=== PATIENT | female | born 1930 | race Caucasian/White ===

== ENCOUNTER 2016-10-29 10:30 | Emergency (ER) | payer MEDICARE ==
[~2016-10-29] VITALS: Ht 160 cm; Wt 83.9 kg
[2016-10-29] MEDS ORDERED: NORVASC5 MG PO (10:31)
[2016-10-29] MEDS ORDERED: LISINOPRIL20 MG PO (10:32)
[2016-10-29] MEDS ORDERED: LIPITOR20 MG PO (10:32)
[2016-10-29] MEDS ORDERED: METFORMIN1000 MG PO (10:32)
[2016-10-29] MEDS ORDERED: LASIX20 MG PO (10:32)
[2016-10-29] MEDS ORDERED: AMARYL1 M1 PO (10:33)
[2016-10-29 11:23] LABS: BASO % 0.3 % (0.0-1.0); HEMATOCRIT 40.4 % (37.0-47.0); HEMOGLOBIN 13.5 g/dl (12.0-16.0); LYMPH # 1.3 10*3/uL (1.3-4.4); MEAN CELL VOLUME 90.6 fl (81.0-99.0); MEAN CORPUSCULAR HGB 30.3 pg (27.0-31.0); MEAN CORPUSCULAR HGB CONC 33.4 g/dl (33.0-37.0); MONO # 0.8 10*3/uL (0.1-1.0); MONO % 6.8 % (3.0-9.0); NEUT # 9.6 10*3/uL (2.3-7.9); NEUT % 81.6 % (47.0-73.0); PLATELET COUNT AUTOMATED 231 10*3/uL (130-400); RED BLOOD COUNT 4.46 10*6/uL (4.10-5.10); RED CELL DISTRI WIDTH 12.1 % (0-14.5); WHITE BLOOD COUNT 11.8 10*3/uL (4.8-10.8)
[2016-10-29 11:40] LABS: ALBUMIN 3.7 gm/dl (3.1-4.5); BILIRUBIN, TOTAL 1.8 mg/dl (0.2-1.0); MAGNESIUM 1.9 mg/dL (1.5-2.1); POTASSIUM 4.1 mmol/L (3.5-5.1); TOTAL PROTEIN 8.3 gm/dL (6.4-8.2)
[2016-10-29 11:43] LABS: TROPONIN I 0.056 ng/ml (<0.045)
[2016-10-29 12:07] LABS: BILIRUBIN NEGATIVE (NEGATIVE); BLOOD 3+ (NEGATIVE); CLARITY SL CLOUDY (CLEAR); COLOR YELLOW (YELLOW); GLUCOSE 2+ (NEGATIVE); KETONE 1+ (NEGATIVE); LEUKO ESTERASE NEGATIVE (NEGATIVE); NITRITE NEGATIVE (NEGATIVE); PROTEIN 3+ (NEGATIVE); SPECIFIC GRAVITY 1.025 (1.005-1.030); UROBILINOGEN 0.2 E.U./dl (0.2-1.0)
[2016-10-29 12:17] LABS: URINE REFLEX COMMENT YES (NO); WBC 31-40 wbc/hpf (0-5); YEAST 2+
[2016-10-29 13:20] LABS: LA>2 REFLEX 2 HR DRAW NOW
== END 2016-10-29 14:35 | disposition short-term general hospital (02) ==
LOC: ED 10:30
PROVIDERS: Family Medicine Adult Medicine
DX: I63.9 Cerebral infarction, unspecified (principal); M62.82 Rhabdomyolysis; Z90.89 Acquired absence of other organs; Z90.710 Acquired absence of both cervix and uterus; Z95.0 Presence of cardiac pacemaker; Z79.899 Other long term (current) drug therapy

== ENCOUNTER 2018-04-11 11:52 | Inpatient (IN) | payer MEDICARE, MEDICAID ==
[~2018-04-11] VITALS: Ht 160 cm; Wt 77.3 kg
--- NOTE | ~2018-04-11 | EKG ---
[place], [place] ELECTROCARDIOGRAM REPORT NAME: FABY KELLER UNIT #: [id number] ROOM: 523 DOCTOR: EPIPHANY DRAFT REPORT BIRTHDATE: [birth year] [facility] Test Date: 2018-04-11 Test Time: 12:12:31 Pat Name: FABY KELLER Department: Room: 523 Gender: F Director Child Abuse Therapy: EKG.PR : 1930 Requested By: ARDEN BLUNT DNP Order Number: [id number] Reading MD: Alvarado Salinas MD Measurements Intervals [facility] [place] Rate: 70 P: 0 CT: 50 QRS: 232 QRSD: 122 T: 84 QT: 461 QTc: 498 Interpretive Statements Ventricular-paced rhythm, Bi ventricular paced rhythm No further analysis attempted due to paced rhythm Compared to ECG 03/17/2018 04:22:56 No significant changes Electronically Signed On 04-11-2018 14:01:49 PDT by Alvarado Salinas MD CM:EKGRPT:ELECTROCARDIOGRAM REPORT 1212 [id number] ARDEN BLUNT DNP EPIPHANY DRAFT REPORT ARDEN BLUNT DNP
[2018-04-11 11:52] VITALS: BP 164/74
[~2018-04-11 11:52] MED LIST: 'zithromax250 MG PO; ALDACTONE25 M1 PO; AMARYL1 M1 PO; ASPIRIN CHEWABL81 MG PO; BREO ELLIPTA 11 EACH INH; CEFUROXIME250 MG PO; COUMADIN2.5 M1 PO; Coumadin5 MG PO; GLIPIZIDE ER2.5 MG PO; GLIPIZIDE5 MG PO; IMDUR SA30 MG PO; JANUVIA50 MG PO; LANTUS SOL100 UNIT/1 SQ; LASIX20 MG PO; LIPITOR20 MG PO; LISINOPRIL20 MG PO; LOPRESSOR25 MG PO; LOSARTAN POTASS50 M1 PO; MEDI-PATCH WIT1 EACH T; METFORMIN1000 MG PO; NORVASC5 MG PO; PREDNISONE5 MG PO; Synthroid,Lev100 MCG PO; TYLENOL325 M3 PO; VITAMIN D5000 UNI1 PO
[2018-04-11 12:13] LABS: BILIRUBIN NEGATIVE (NEGATIVE); BLOOD TRACE-LYSED (NEGATIVE); CLARITY SL CLOUDY (CLEAR); COLOR YELLOW (YELLOW); GLUCOSE NEGATIVE (NEGATIVE); KETONE NEGATIVE (NEGATIVE); LEUKO ESTERASE 1+ (NEGATIVE); NITRITE NEGATIVE (NEGATIVE); PH 5.5 (5.0-9.0); UROBILINOGEN 0.2 E.U./dl (0.2-1.0)
[2018-04-11] MEDS ORDERED: COUMADIN2.5 M1 PO (12:23)
[2018-04-11] MEDS ORDERED: ASPIRIN81 M1 PO (12:23)
[2018-04-11] MEDS ORDERED: IMDUR SA30 MG PO (12:24)
[2018-04-11] MEDS ORDERED: Glipizide2.5 MG PO (12:24)
[2018-04-11] MEDS ORDERED: COUMADIN5 M2 PO (12:24)
[2018-04-11] MEDS ORDERED: GLIPIZIDE5 MG PO (12:24)
[2018-04-11 12:25] LABS: BACTERIA 4+; EPITHELIAL CELLS 0-2; WBC 21-30 wbc/hpf (0-5); YEAST 1+
[2018-04-11] MEDS ORDERED: JANUVIA50 MG PO (12:25)
[2018-04-11] MEDS ORDERED: LASIX40 MG PO (12:26)
[2018-04-11] MEDS ORDERED: LIDODERM1 EACH T (12:26)
[2018-04-11] MEDS ORDERED: LANTUS SOL100 UNIT/1 SC (12:26)
[2018-04-11] MEDS ORDERED: KLOR-CON SPRINK8 MEQ PO (12:27)
[2018-04-11] MEDS ORDERED: NORVASC5 MG PO (12:27)
[2018-04-11] MEDS ORDERED: PROBIOTIC250 MG PO (12:28)
[2018-04-11] MEDS ORDERED: PREDNISONE5 MG PO (12:28)
[2018-04-11] MEDS ORDERED: Synthroid,Lev100 MCG PO (12:28)
[2018-04-11] MEDS ORDERED: Synthroid,Levo50 MCG PO (12:29)
[2018-04-11] MEDS ORDERED: VITAMIN D35000 UNIT PO (12:30)
[2018-04-11] MEDS ORDERED: TYLENOL325 M2 PO (12:31)
[2018-04-11 13:28] VITALS: BP 160/76
[2018-04-11 14:09] LABS: BASO % 0.3 % (0.0-1.0); EOS # 0.1 10*3/uL (0.0-0.4); EOS % 1.1 % (1.0-4.0); HEMATOCRIT 33.3 % (37.0-47.0); HEMOGLOBIN 10.5 g/dl (12.0-16.0); LYMPH # 0.8 10*3/uL (1.3-4.4); LYMPH % 7.8 % (27.0-41.0); MEAN CELL VOLUME 94.9 fl (81.0-99.0); MEAN CORPUSCULAR HGB 29.9 pg (27.0-31.0); MEAN CORPUSCULAR HGB CONC 31.5 g/dl (33.0-37.0); MEAN PLATELET VOLUME 9.6 fl (9.6-12.3); MONO # 0.8 10*3/uL (0.1-1.0); MONO % 7.9 % (3.0-9.0); NEUT # 8.8 10*3/uL (2.3-7.9); NEUT % 82.1 % (47.0-73.0); PLATELET COUNT AUTOMATED 192 10*3/uL (130-400); RED BLOOD COUNT 3.51 10*6/uL (4.10-5.10); RED CELL DISTRI WIDTH 13.8 % (0-14.5); WHITE BLOOD COUNT 10.7 10*3/uL (4.8-10.8)
[2018-04-11 14:27] LABS: ACT PARTIAL THROMBO TIME 34.1 SECONDS (20.8-31.5); INTERNATIONAL NORM RATIO 2.2 (2.0-3.5)
[2018-04-11 14:30] LABS: ALBUMIN 3.4 gm/dl (3.1-4.5); ALKALINE PHOSPHATASE 73 U/L (45-117); BUN 18 mg/dl (7-24); CHLORIDE 106 mmol/L (98-107); CREATININE 1.63 mg/dL (0.55-1.02); LIPASE 143 U/L (73-393); SGOT/AST 17 IU/L (3-35); SGPT/ALT 23 U/L (12-78); SODIUM 142 mmol/L (136-145); TOTAL PROTEIN 7.3 gm/dL (6.4-8.2)
[2018-04-11 14:31] LABS: TROPONIN I < 0.015 ng/ml (<0.045)
[2018-04-11 14:59] VITALS: BP 146/78
[2018-04-11 20:00] VITALS: BP 150/80
[2018-04-12] VITALS: BP 152/58
[2018-04-12 07:06] LABS: BASO % 0.1 % (0.0-1.0); EOS # 0.1 10*3/uL (0.0-0.4); EOS % 0.6 % (1.0-4.0); HEMATOCRIT 35.4 % (37.0-47.0); LYMPH # 1.7 10*3/uL (1.3-4.4); LYMPH % 11.2 % (27.0-41.0); MEAN CELL VOLUME 95.2 fl (81.0-99.0); MEAN CORPUSCULAR HGB 29.6 pg (27.0-31.0); MEAN CORPUSCULAR HGB CONC 31.1 g/dl (33.0-37.0); MEAN PLATELET VOLUME 10.1 fl (9.6-12.3); MONO # 1.3 10*3/uL (0.1-1.0); MONO % 8.6 % (3.0-9.0); NEUT # 12.2 10*3/uL (2.3-7.9); NEUT % 78.9 % (47.0-73.0); PLATELET COUNT AUTOMATED 168 10*3/uL (130-400); RED BLOOD COUNT 3.72 10*6/uL (4.10-5.10); RED CELL DISTRI WIDTH 13.8 % (0-14.5); WHITE BLOOD COUNT 15.5 10*3/uL (4.8-10.8)
[2018-04-12 07:18] LABS: ALBUMIN 3.5 gm/dl (3.1-4.5); CREATININE 1.53 mg/dL (0.55-1.02); PHOSPHOROUS 3.1 mg/dL (2.5-4.9); POTASSIUM 4.2 mmol/L (3.5-5.1); TOTAL PROTEIN 7.8 gm/dL (6.4-8.2)
[2018-04-12 08:00] VITALS: BP 164/72
[2018-04-12] MEDS ORDERED: Lopressor25 MG PO (09:04)
[2018-04-12 11:31] LABS: INTERNATIONAL NORM RATIO 1.7 (2.0-3.5)
[2018-04-12 12:00] VITALS: BP 103/67
[2018-04-12 16:00] VITALS: BP 139/64
[2018-04-13] VITALS: BP 132/54
[2018-04-13 08:00] VITALS: BP 149/50
[2018-04-13] MEDS ORDERED: Humalog SQ (13:50)
[2018-04-13 16:00] VITALS: BP 149/73
== END 2018-04-13 16:30 | disposition other institution (70) | DRG 638 ==
LOC: ED 11:52 → 5E 14:54 → EDHOLD 14:54 → 5E 15:18
PROVIDERS: Internal Medicine; Nurse Practitioner Family
DX: E11.649 Type 2 diabetes mellitus with hypoglycemia without coma (principal); N30.01 Acute cystitis with hematuria; I50.32 Chronic diastolic (congestive) heart failure; I13.0 Hypertensive heart and chronic kidney disease with heart failure and stage 1 through stage 4 chronic kidney disease, or unspecified chronic kidney disease; K74.60 Unspecified cirrhosis of liver; N18.3 Chronic kidney disease, stage 3 (moderate); L89.152 Pressure ulcer of sacral region, stage 2; J44.9 Chronic obstructive pulmonary disease, unspecified; D64.9 Anemia, unspecified; I48.0 Paroxysmal atrial fibrillation; E11.65 Type 2 diabetes mellitus with hyperglycemia; E11.22 Type 2 diabetes mellitus with diabetic chronic kidney disease; I48.91 Unspecified atrial fibrillation; E66.09 Other obesity due to excess calories; Z68.31 Body mass index [BMI] 31.0-31.9, adult; Z95.810 Presence of automatic (implantable) cardiac defibrillator; Z88.0 Allergy status to penicillin; Z91.040 Latex allergy status; Z79.82 Long term (current) use of aspirin; Z79.899 Other long term (current) drug therapy; Z79.4 Long term (current) use of insulin; Z86.73 Personal history of transient ischemic attack (TIA), and cerebral infarction without residual deficits; Z79.01 Long term (current) use of anticoagulants; Z90.710 Acquired absence of both cervix and uterus

== ENCOUNTER 2018-07-14 17:54 | Inpatient (IN) | payer MEDICARE, MEDICAID ==
[~2018-07-14] VITALS: Ht 152.4 cm; Wt 76.8 kg
[~2018-07-14 17:54] MED LIST changes: +ASPIRIN81 M1 PO; +COUMADIN5 M2 PO; +Glipizide2.5 MG PO; +Humalog SQ; +KLOR-CON SPRINK8 MEQ PO; +LANTUS SOL100 UNIT/1 SC; +LASIX40 MG PO; +LIDODERM1 EACH T; +Lopressor25 MG PO; +PROBIOTIC250 MG PO; +Synthroid,Levo50 MCG PO; +TYLENOL325 M2 PO; +VITAMIN D35000 UNIT PO
[2018-07-14 17:55] VITALS: BP 163/71
[2018-07-14 18:54] LABS: BASO % 0.1 % (0.0-1.0); HEMATOCRIT 35.7 % (37.0-47.0); HEMOGLOBIN 11.4 g/dl (12.0-16.0); LYMPH # 0.6 10*3/uL (1.3-4.4); LYMPH % 4.1 % (27.0-41.0); MEAN CORPUSCULAR HGB CONC 31.9 g/dl (33.0-37.0); MEAN PLATELET VOLUME 9.3 fl (9.6-12.3); MONO % 6.7 % (3.0-9.0); NEUT # 13.7 10*3/uL (2.3-7.9); NEUT % 88.5 % (47.0-73.0); PLATELET COUNT AUTOMATED 254 10*3/uL (130-400); RED BLOOD COUNT 3.68 10*6/uL (4.10-5.10); RED CELL DISTRI WIDTH 13.1 % (0-14.5); WHITE BLOOD COUNT 15.5 10*3/uL (4.8-10.8)
[2018-07-14 19:10] LABS: ALBUMIN 3.6 gm/dl (3.1-4.5); CREATININE 1.83 mg/dL (0.55-1.02); POTASSIUM 3.8 mmol/L (3.5-5.1); TOTAL PROTEIN 7.7 gm/dL (6.4-8.2)
[2018-07-14 19:43] LABS: ACT PARTIAL THROMBO TIME 30.3 SECONDS (20.8-31.5); INTERNATIONAL NORM RATIO 1.9 (2.0-3.5)
[2018-07-14 20:08] LABS: BILIRUBIN NEGATIVE (NEGATIVE); BLOOD 2+ (NEGATIVE); CLARITY CLOUDY (CLEAR); COLOR YELLOW (YELLOW); GLUCOSE NEGATIVE (NEGATIVE); KETONE NEGATIVE (NEGATIVE); LEUKO ESTERASE 2+ (NEGATIVE); NITRITE NEGATIVE (NEGATIVE); PH 5.5 (5.0-9.0); SPECIFIC GRAVITY >= 1.030 (1.005-1.030); UROBILINOGEN 0.2 E.U./dl (0.2-1.0)
[2018-07-14 20:20] LABS: WBC TNTC wbc/hpf (0-5)
[2018-07-14 21:36] VITALS: BP 141/65
[2018-07-14 22:00] VITALS: BP 154/59
[2018-07-14] MEDS ORDERED: GLIPIZIDE2.5 MG PO (23:47)
[2018-07-14] MEDS ORDERED: Ipratropium Brom3 ML INH (23:50)
[2018-07-14] MEDS ORDERED: NOVOLOG100 UNIT/1 SQ ×2 (23:53)
[2018-07-15] VITALS: BP 138/78
[2018-07-15 04:00] VITALS: BP 132/53
[2018-07-15 06:15] LABS: BASO % 0.1 % (0.0-1.0); EOS % 0.1 % (1.0-4.0); HEMATOCRIT 35.7 % (37.0-47.0); HEMOGLOBIN 11.5 g/dl (12.0-16.0); LYMPH # 1.1 10*3/uL (1.3-4.4); LYMPH % 6.4 % (27.0-41.0); MEAN CELL VOLUME 98.1 fl (81.0-99.0); MEAN CORPUSCULAR HGB 31.6 pg (27.0-31.0); MEAN CORPUSCULAR HGB CONC 32.2 g/dl (33.0-37.0); MONO % 5.7 % (3.0-9.0); NEUT # 14.9 10*3/uL (2.3-7.9); NEUT % 87.1 % (47.0-73.0); PLATELET COUNT AUTOMATED 203 10*3/uL (130-400); RED BLOOD COUNT 3.64 10*6/uL (4.10-5.10); RED CELL DISTRI WIDTH 13.2 % (0-14.5); WHITE BLOOD COUNT 17.1 10*3/uL (4.8-10.8)
[2018-07-15 06:44] LABS: ALBUMIN 3.1 gm/dl (3.1-4.5); CREATININE 1.83 mg/dL (0.55-1.02); FREE T4 1.49 ng/dl (0.76-1.46); PHOSPHOROUS 4.5 mg/dL (2.5-4.9); TOTAL PROTEIN 6.9 gm/dL (6.4-8.2)
[2018-07-15 06:49] LABS: THYROID STIM HORMONE (HS) 1.22 uIU/ml (0.358-4.75)
[2018-07-15 07:04] LABS: POTASSIUM 5.1 mmol/L (3.5-5.1)
[2018-07-15 07:18] LABS: VITAMIN D, 25-HYDROXY 42.3 ng/mL (30-100)
[2018-07-15 08:00] VITALS: BP 134/54
[2018-07-15 08:06] LABS: INTERNATIONAL NORM RATIO 2.3 (2.0-3.5)
[2018-07-15 16:00] VITALS: BP 151/64
[2018-07-15 20:00] VITALS: BP 139/58
[2018-07-16] VITALS: BP 151/70
[2018-07-16 07:09] LABS: BASO % 0.2 % (0.0-1.0); EOS % 0.2 % (1.0-4.0); HEMATOCRIT 35.5 % (37.0-47.0); HEMOGLOBIN 11.1 g/dl (12.0-16.0); LYMPH # 1.4 10*3/uL (1.3-4.4); LYMPH % 10.9 % (27.0-41.0); MEAN CELL VOLUME 98.3 fl (81.0-99.0); MEAN CORPUSCULAR HGB 30.7 pg (27.0-31.0); MEAN CORPUSCULAR HGB CONC 31.3 g/dl (33.0-37.0); MEAN PLATELET VOLUME 9.6 fl (9.6-12.3); MONO # 0.9 10*3/uL (0.1-1.0); MONO % 6.8 % (3.0-9.0); NEUT # 10.7 10*3/uL (2.3-7.9); NEUT % 81.4 % (47.0-73.0); PLATELET COUNT AUTOMATED 203 10*3/uL (130-400); RED BLOOD COUNT 3.61 10*6/uL (4.10-5.10); RED CELL DISTRI WIDTH 13.2 % (0-14.5); WHITE BLOOD COUNT 13.2 10*3/uL (4.8-10.8)
[2018-07-16 07:20] LABS: CREATININE 1.66 mg/dL (0.55-1.02)
[2018-07-16 07:24] LABS: POTASSIUM 3.8 mmol/L (3.5-5.1)
[2018-07-16 07:40] LABS: INTERNATIONAL NORM RATIO 2.9 (2.0-3.5)
[2018-07-16 07:46] VITALS: BP 154/60
[2018-07-16] MEDS ORDERED: DOXYCYCLINE100 M3 PO (14:21)
== END 2018-07-16 15:25 | DRG 871 ==
LOC: ED 17:54 → EDHOLD 20:55 → 5E 20:55
PROVIDERS: Internal Medicine; Physician Assistant
DX: A41.9 Sepsis, unspecified organism (principal); N17.0 Acute kidney failure with tubular necrosis; N12 Tubulo-interstitial nephritis, not specified as acute or chronic; I50.32 Chronic diastolic (congestive) heart failure; I13.0 Hypertensive heart and chronic kidney disease with heart failure and stage 1 through stage 4 chronic kidney disease, or unspecified chronic kidney disease; E87.2 Acidosis; N18.3 Chronic kidney disease, stage 3 (moderate); R65.20 Severe sepsis without septic shock; D50.9 Iron deficiency anemia, unspecified; R74.0 Nonspecific elevation of levels of transaminase and lactic acid dehydrogenase [LDH]; R70.0 Elevated erythrocyte sedimentation rate; M54.5 Low back pain; K59.00 Constipation, unspecified; E11.22 Type 2 diabetes mellitus with diabetic chronic kidney disease; R11.14 Bilious vomiting; J44.9 Chronic obstructive pulmonary disease, unspecified; E11.65 Type 2 diabetes mellitus with hyperglycemia; Z66 Do not resuscitate; Z51.5 Encounter for palliative care; K74.60 Unspecified cirrhosis of liver; F03.90 Unspecified dementia, unspecified severity, without behavioral disturbance, psychotic disturbance, mood disturbance, and anxiety; I48.91 Unspecified atrial fibrillation; R79.1 Abnormal coagulation profile; E83.41 Hypermagnesemia; E87.8 Other disorders of electrolyte and fluid balance, not elsewhere classified; Z79.4 Long term (current) use of insulin; Z88.0 Allergy status to penicillin; Z91.040 Latex allergy status; Z95.0 Presence of cardiac pacemaker; Z90.710 Acquired absence of both cervix and uterus; Z87.891 Personal history of nicotine dependence; Z86.73 Personal history of transient ischemic attack (TIA), and cerebral infarction without residual deficits; Z79.82 Long term (current) use of aspirin; Z79.899 Other long term (current) drug therapy

== ENCOUNTER 2019-06-27 19:21 | Inpatient (IN) | payer MEDICARE, MEDICAID ==
[~2019-06-27] VITALS: Ht 157.4 cm; Wt 69.1 kg
[~2019-06-27 19:21] MED LIST changes: +DOXYCYCLINE100 M3 PO; +FUROSEMIDE20 M1 PO; +FUROSEMIDE40 MG PO; +GLIPIZIDE2.5 MG PO; +GUAIFENESI100 MG/51 PO; +Ipratropium Brom3 ML INH; +LEVEMIR FL100 UNIT/1 SQ; +METHYLPRED-DP4 MG PO; +NOVOLOG100 UNIT/1 SQ; +POTASSIUM CHLO10 MEQ PO; +PREDNISONE10 MG PO; +TAMIFLU30 MG PO
[2019-06-27 19:24] VITALS: BP 130/60
--- NOTE | 2019-06-27 19:47 | NUR ---
NOTIFIED DR HANNA OF ISSUES ESTABLISHING IV ACCESS. MAGAN SILVERIO TO ATTEMPT.
--- NOTE | 2019-06-27 19:56 | NUR ---
PLACED ON BIPAP 12/6, 40%, BACK UP RATE OF [address] HANNA ORDER. RR 31, VT 417, SpO2 99, HR 70. ALARMS SET AND AUDIBLE.
--- NOTE | 2019-06-27 20:15 | NUR ---
TOLERATING BIPAP WELL.
[2019-06-27 20:17] LABS: BASO # 0.1 10*3/uL (0.0-0.1); BASO % 0.6 % (0.0-1.0); EOS # 0.2 10*3/uL (0.0-0.4); EOS % 1.5 % (1.0-4.0); HEMATOCRIT 38.5 % (37.0-47.0); HEMOGLOBIN 11.9 g/dl (12.0-16.0); LYMPH % 13.8 % (27.0-41.0); MEAN CELL VOLUME 100.3 fl (81.0-99.0); MEAN CORPUSCULAR HGB CONC 30.9 g/dl (33.0-37.0); MEAN PLATELET VOLUME 10.1 fl (9.6-12.3); MONO # 1.1 10*3/uL (0.1-1.0); MONO % 7.6 % (3.0-9.0); NEUT % 76.2 % (47.0-73.0); PLATELET COUNT AUTOMATED 208 10*3/uL (130-400); RED BLOOD COUNT 3.84 10*6/uL (4.10-5.10); WHITE BLOOD COUNT 14.4 10*3/uL (4.8-10.8)
[2019-06-27 20:27] LABS: INTERNATIONAL NORM RATIO 1.7 (2.0-3.5)
--- NOTE | 2019-06-27 20:30 | NUR ---
PULLED UP IN BED AND REPOSITIONED FOR COMFORT. CONTINUES TO TOLERATE BIPAP WELL. SIDE RAILS X 2 AND CALL LIGHT WITHIN REACH. FAMILY REMAINS AT THE BEDSIDE.
[2019-06-27 20:35] LABS: ALKALINE PHOSPHATASE 71 U/L (45-117); BUN 25 mg/dl (7-24); CHLORIDE 111 mmol/L (98-107); CREATININE 1.87 mg/dL (0.55-1.02); POTASSIUM 4.1 mmol/L (3.5-5.1); SGOT/AST 21 IU/L (3-35); SGPT/ALT 18 U/L (12-78); SODIUM 142 mmol/L (136-145); TOTAL PROTEIN 8.4 gm/dL (6.4-8.2)
[2019-06-27 20:38] LABS: TROPONIN I < 0.015 ng/ml (<0.045)
--- NOTE | 2019-06-27 20:40 | NUR ---
NOTIFIED DR HANNA OF LACTIC ACID OF 2.8.
--- NOTE | 2019-06-27 21:42 | NUR ---
SPOKE WITH HAFSA, RECEIVING R TO NOTIFY OF ETA TO ROOM. AWAITING RESPIRATORY.
[2019-06-27 21:50] VITALS: BP 121/78
[2019-06-27 22:00] VITALS: BP 148/78
--- NOTE | 2019-06-27 22:00 | NUR ---
The assessment has been completed. Time: 2199 A 89 year old FEMALE admitted to under services of AISSATOU MONZON DO. Pt. arrived via bed from ER. Chief complaint: DANIEL,CHF,RESPIRATORY DISTRESS, ELEVATED LACTIC ACID. HAFSA GUTIERREZ
[2019-06-27] MEDS ORDERED: COUMADIN2.5 M1 PO (22:40)
[2019-06-27] MEDS ORDERED: WARFARIN SOD5 MG PO (22:41)
[2019-06-27] MEDS ORDERED: DIABETIC T100 MG/51 PO (22:42)
[2019-06-27] MEDS ORDERED: DULCOLAX10 M1 R (22:43)
[2019-06-27] MEDS ORDERED: MILK OF MA400 MG/5 M PO (22:43)
[2019-06-27] MEDS ORDERED: READY TO USE E133 ML R (22:44)
--- NOTE | 2019-06-27 22:45 | NUR ---
INFORMED DR MAN THAT PT WAS UP ON THE FLOOR, MED REC WAS COMPLETE AND THAT SHE WAS IN NO ACUTE DISTRESS. STATED HE WOULD PUT ADMISSION ORDERS IN.
[2019-06-27] MEDS ORDERED: MYLANTA MAXIMU355 M1 PO (22:46)
[2019-06-27] MEDS ORDERED: NOVOLOG100 UNIT/1 SQ (22:50)
--- NOTE | 2019-06-27 23:38 | NUR ---
URINE OBTAINED VIA STAIGHT CATH UNDER STERILE TECHNIQUE. PT TOLERATED WELL. VOICES NO CONCERNS AT THIS TIME. UMANG CARE PROVIDED. RESTING IN BED. BED ALARM ON. CALL LIGHT WITHIN REACH.
[2019-06-27 23:45] LABS: BILIRUBIN NEGATIVE (NEGATIVE); BLOOD 1+ (NEGATIVE); CLARITY CLOUDY (CLEAR); COLOR YELLOW (YELLOW); GLUCOSE NEGATIVE (NEGATIVE); KETONE NEGATIVE (NEGATIVE); LEUKO ESTERASE 3+ (NEGATIVE); NITRITE NEGATIVE (NEGATIVE); PH 5.5 (5.0-9.0); UROBILINOGEN 0.2 E.U./dl (0.2-1.0)
[2019-06-27 23:53] LABS: WBC TNTC wbc/hpf (0-5)
--- NOTE | 2019-06-28 00:01 | NUR ---
24 HR chart check completed.
--- NOTE | 2019-06-28 02:30 | NUR ---
Patient resting quietly with no c/o discomfort. Respirations easy and regular. Vital signs stable. No overt distress. OXYGEN 2L VIA NC INTACT. BED ALARM ON. CALL HELIO FERRELL. HAFSA GUTIERREZ
--- NOTE | 2019-06-28 04:21 | NUR ---
Patient sleeping. Respirations relaxed and easy. [place]ails up . [place] on. NO S/S OF DISTRESS NOTED. OXYGEN 2L VIA NC INTACT. CALL LIGHT WITHIN REACH HISSOM,HAFSA
--- NOTE | 2019-06-28 04:42 | NUR ---
PT COMPLAINS OF 6/10 HIP PAIN. MEDICATED PER ORDER. PILLS GIVEN WHOLE IN APPLESAUCE. WILL MONITOR FOR RELIEF. VOICES NO OTHER CONCERNS AT THIS TIME. RESTING IN BED. CALL LIGHT WITHIN REACH.
--- NOTE | 2019-06-28 06:37 | NUR ---
TYLENOL EFFECTIVE. PT SLEEPING. OXYGEN AT 2L VIA NC INTACT. BED ALARM ON. CALL LIGHT WITHIN REACH. RESPS EASY AND NON LABORED. NO S/S OF DISTRESS NOTED.
[2019-06-28 06:45] LABS: BASO # 0.1 10*3/uL (0.0-0.1); BASO % 0.5 % (0.0-1.0); EOS # 0.1 10*3/uL (0.0-0.4); EOS % 0.7 % (1.0-4.0); HEMATOCRIT 36.1 % (37.0-47.0); HEMOGLOBIN 11.8 g/dl (12.0-16.0); LYMPH % 18.4 % (27.0-41.0); MEAN CORPUSCULAR HGB 31.3 pg (27.0-31.0); MEAN CORPUSCULAR HGB CONC 32.7 g/dl (33.0-37.0); MEAN PLATELET VOLUME 11.1 fl (9.6-12.3); MONO % 9.4 % (3.0-9.0); NEUT # 7.6 10*3/uL (2.3-7.9); NEUT % 70.4 % (47.0-73.0); PLATELET COUNT AUTOMATED 194 10*3/uL (130-400); RED BLOOD COUNT 3.77 10*6/uL (4.10-5.10); RED CELL DISTRI WIDTH 12.9 % (0-14.5); WHITE BLOOD COUNT 10.8 10*3/uL (4.8-10.8)
[2019-06-28 07:00] LABS: CREATININE 1.79 mg/dL (0.55-1.02); POTASSIUM 4.5 mmol/L (3.5-5.1)
[2019-06-28 07:02] LABS: MEAN CELL VOLUME 95.8 fl (81.0-99.0)
[2019-06-28 12:00] VITALS: BP 128/69
[2019-06-28 16:00] VITALS: BP 122/61
[2019-06-28 20:00] VITALS: BP 148/76
--- NOTE | 2019-06-28 20:00 | NUR ---
IN TO SEE PATIENT. PATIENT ALERT TO SELF ONLY. PATIENT UNSURE WHERE SHE WAS. REORIENTED PATIENT TO PLACE. PATIENT HAD NO COMPLAINTS AT THIS TIME AND DENIED ANY PAIN. CALL LIGHT WITHIN REACH. WILL MONITOR.
[2019-06-29] VITALS: BP 147/56
--- NOTE | 2019-06-29 04:59 | NUR ---
24 HR chart check completed.
[2019-06-29 06:46] LABS: BASO # 0.1 10*3/uL (0.0-0.1); BASO % 0.5 % (0.0-1.0); EOS # 0.2 10*3/uL (0.0-0.4); EOS % 2.3 % (1.0-4.0); HEMATOCRIT 35.5 % (37.0-47.0); HEMOGLOBIN 11.1 g/dl (12.0-16.0); LYMPH # 1.1 10*3/uL (1.3-4.4); LYMPH % 10.5 % (27.0-41.0); MEAN CELL VOLUME 98.1 fl (81.0-99.0); MEAN CORPUSCULAR HGB 30.7 pg (27.0-31.0); MEAN CORPUSCULAR HGB CONC 31.3 g/dl (33.0-37.0); MEAN PLATELET VOLUME 9.6 fl (9.6-12.3); MONO # 0.8 10*3/uL (0.1-1.0); MONO % 7.7 % (3.0-9.0); NEUT % 78.6 % (47.0-73.0); PLATELET COUNT AUTOMATED 220 10*3/uL (130-400); RED BLOOD COUNT 3.62 10*6/uL (4.10-5.10); RED CELL DISTRI WIDTH 12.5 % (0-14.5); WHITE BLOOD COUNT 10.2 10*3/uL (4.8-10.8)
[2019-06-29 06:47] LABS: ALBUMIN 3.4 gm/dl (3.1-4.5); CREATININE 1.6 mg/dL (0.55-1.02); POTASSIUM 3.9 mmol/L (3.5-5.1); TOTAL PROTEIN 7.5 gm/dL (6.4-8.2)
[2019-06-29 07:26] LABS: INTERNATIONAL NORM RATIO 1.2 (2.0-3.5)
[2019-06-29 12:00] VITALS: BP 155/65
[2019-06-29 16:00] VITALS: BP 160/60
--- NOTE | 2019-06-29 19:00 | NUR ---
RECEIVED REPORT FROM NURSE RYAN. IN TO SEE PATIENT. PATIENTS RESPIRATIONS WERE EASY, NONLABORED. PATIENT DENIED ANY PAIN AND STATED NO COMPLAINTS AT THIS TIME. ASSESSMENT COMPLETED. CALL LIGHT WITHIN REACH. WILL CONTINUE TO MONITOR.
[2019-06-29 20:00] VITALS: BP 137/51
[2019-06-30] VITALS: BP 131/50
--- NOTE | 2019-06-30 02:45 | NUR ---
24 HR chart check completed.
[2019-06-30 06:20] LABS: BASO % 0.5 % (0.0-1.0); EOS # 0.4 10*3/uL (0.0-0.4); EOS % 4.1 % (1.0-4.0); LYMPH # 1.7 10*3/uL (1.3-4.4); MEAN CELL VOLUME 98.9 fl (81.0-99.0); MEAN CORPUSCULAR HGB 31.1 pg (27.0-31.0); MEAN CORPUSCULAR HGB CONC 31.4 g/dl (33.0-37.0); MEAN PLATELET VOLUME 9.6 fl (9.6-12.3); MONO % 11.4 % (3.0-9.0); NEUT # 5.4 10*3/uL (2.3-7.9); NEUT % 63.6 % (47.0-73.0); PLATELET COUNT AUTOMATED 227 10*3/uL (130-400); RED BLOOD COUNT 3.54 10*6/uL (4.10-5.10); RED CELL DISTRI WIDTH 12.3 % (0-14.5); WHITE BLOOD COUNT 8.5 10*3/uL (4.8-10.8)
[2019-06-30 06:48] LABS: ALBUMIN 3.3 gm/dl (3.1-4.5); CREATININE 1.64 mg/dL (0.55-1.02); POTASSIUM 3.5 mmol/L (3.5-5.1); TOTAL PROTEIN 7.3 gm/dL (6.4-8.2)
[2019-06-30 07:06] LABS: INTERNATIONAL NORM RATIO 1.2 (2.0-3.5)
[2019-06-30 08:00] VITALS: BP 153/60
--- NOTE | 2019-06-30 11:10 | NUR ---
NURSE TO NURSE REPORT GIVEN TO [facility] AT [facility].
--- NOTE | 2019-06-30 11:19 | NUR ---
PT'S FAMILY MADE AWARE OF PLAN FOR D/C TODAY BACK TO [facility].
[2019-06-30 12:25] VITALS: BP 153/59
--- NOTE | 2019-06-30 13:13 | NUR ---
Discharge instructions reviewed with patient/family. Patient receptive and verbalizes understanding. Follow-up care arranged. Written instructions given to patient/family. Patient discharged via [facility]. MYKE ALEXANDRA
== END 2019-06-30 13:13 | disposition other institution (70) | DRG 291 ==
LOC: ED 19:21 → EDHOLD 21:11 → 4E 21:22
PROVIDERS: Emergency Medicine; Hospitalist; Internal Medicine; ADMIT Internal Medicine
PROC: 5A09357 Assistance with Respiratory Ventilation, Less than 24 Consecutive Hours, Continuous Positive Airway Pressure (ICD-10-PCS; principal; 2019-06-27)
DX: I13.0 Hypertensive heart and chronic kidney disease with heart failure and stage 1 through stage 4 chronic kidney disease, or unspecified chronic kidney disease (principal); R65.11 Systemic inflammatory response syndrome (SIRS) of non-infectious origin with acute organ dysfunction; I50.33 Acute on chronic diastolic (congestive) heart failure; E87.2 Acidosis; N17.9 Acute kidney failure, unspecified; J44.9 Chronic obstructive pulmonary disease, unspecified; K74.60 Unspecified cirrhosis of liver; I48.91 Unspecified atrial fibrillation; N18.3 Chronic kidney disease, stage 3 (moderate); E11.22 Type 2 diabetes mellitus with diabetic chronic kidney disease; D64.9 Anemia, unspecified; E87.8 Other disorders of electrolyte and fluid balance, not elsewhere classified; E83.41 Hypermagnesemia; Z66 Do not resuscitate; Z51.5 Encounter for palliative care; E66.9 Obesity, unspecified; E11.65 Type 2 diabetes mellitus with hyperglycemia; Z79.4 Long term (current) use of insulin; Z79.01 Long term (current) use of anticoagulants; Z68.30 Body mass index [BMI] 30.0-30.9, adult; Z86.73 Personal history of transient ischemic attack (TIA), and cerebral infarction without residual deficits; Z88.0 Allergy status to penicillin; Z91.040 Latex allergy status; Z87.01 Personal history of pneumonia (recurrent); Z95.810 Presence of automatic (implantable) cardiac defibrillator; Z90.710 Acquired absence of both cervix and uterus; Z87.891 Personal history of nicotine dependence; Z79.899 Other long term (current) drug therapy

== ENCOUNTER 2019-12-17 15:21 | Inpatient (IN) | payer MEDICARE, MEDICAID ==
[~2019-12-17] VITALS: Ht 165.1 cm; Wt 67.2 kg
[2019-12-17 15:21] VITALS: BP 143/89
[~2019-12-17 15:21] MED LIST changes: +DIABETIC T100 MG/51 PO; +DULCOLAX10 M1 R; +MILK OF MA400 MG/5 M PO; +MYLANTA MAXIMU355 M1 PO; +READY TO USE E133 ML R; +WARFARIN SOD5 MG PO
[2019-12-17 16:52] LABS: BASO % 0.3 % (0.0-1.0); EOS # 0.3 10*3/uL (0.0-0.4); EOS % 2.5 % (1.0-4.0); HEMATOCRIT 35.7 % (37.0-47.0); LYMPH # 1.2 10*3/uL (1.3-4.4); LYMPH % 11.8 % (27.0-41.0); MEAN CELL VOLUME 99.4 fl (81.0-99.0); MEAN CORPUSCULAR HGB 30.6 pg (27.0-31.0); MEAN CORPUSCULAR HGB CONC 30.8 g/dl (33.0-37.0); MEAN PLATELET VOLUME 9.5 fl (9.6-12.3); MONO % 9.8 % (3.0-9.0); NEUT # 7.4 10*3/uL (2.3-7.9); NEUT % 75.4 % (47.0-73.0); PLATELET COUNT AUTOMATED 194 10*3/uL (130-400); RED BLOOD COUNT 3.59 10*6/uL (4.10-5.10); RED CELL DISTRI WIDTH 12.9 % (0-14.5); WHITE BLOOD COUNT 9.9 10*3/uL (4.8-10.8)
[2019-12-17 17:09] LABS: ALBUMIN 3.5 gm/dl (3.1-4.5); ALKALINE PHOSPHATASE 66 U/L (45-117); BUN 22 mg/dl (7-24); CHLORIDE 108 mmol/L (98-107); CREATININE 1.82 mg/dL (0.55-1.02); POTASSIUM 4.4 mmol/L (3.5-5.1); SGOT/AST 18 IU/L (3-35); SGPT/ALT 18 U/L (12-78); SODIUM 138 mmol/L (136-145); TOTAL PROTEIN 7.7 gm/dL (6.4-8.2)
[2019-12-17 17:17] LABS: TROPONIN I < 0.015 ng/ml (<0.045)
[2019-12-17 17:30] VITALS: BP 148/83
--- NOTE | 2019-12-17 17:30 | NUR ---
PT WIMPERING. RN ASKED IF SHE WAS IN PAIN. PT DENIES PAIN, DISCOMFORT OR SOB AT THIS TIME. WHEN ASKED WHAT IS WRONG THAT IS CAUSING HER TO WIMPER SHE REPLIED "EVERYTHING" PT REFUSES TO KEEP PULSE OX ON.
--- NOTE | 2019-12-17 18:33 | NUR ---
PT HOLDING HER DENTURES IN HER HAND AT THIS TIME. RN OFFERED A DENTURE CUP AND PT STATES THAT SHE WANTS TO PUT THEM BACK IN HER MOUTH. RN OFFERED ASSISTANCE AND WAS TOLD THAT SHE DID NOT NEED HELP.
--- NOTE | 2019-12-17 18:45 | NUR ---
PT'S DENTURES PLACED IN DENTURE CUP AND PLACED IN BELONGINGS BAG WITH HER CLOTHING AND EYE GLASSES.
[2019-12-17 20:35] VITALS: BP 160/76
--- NOTE | 2019-12-17 20:35 | NUR ---
A 89, admitted to 5E, under the services of LAYNE Marquez DO with a diagnosis of CHF. Chief complaint is SOB 2-3 DAYS PT. FROM [facility], O2 DEP.4L AT [facility].. Patient arrived via stretcher from ER. Monitor applied. Initial assessment completed. Vital signs taken and recorded. LAYNE MARQUEZ DO notified of admission to the . Orders received. See assessment for past medical history, medications and allergies. Patient and/or family oriented to unit. [facility] visitation policy reviewed. Clothing/patient valuable form completed. BRYANT YAP
--- NOTE | 2019-12-17 21:10 | NUR ---
CALLED DR. NINO AND NOTIFIED PT. HERE AND CONDITION. ORDERS WERE PLACED.
[2019-12-17] MEDS ORDERED: BUMETANIDE1 MG PO (21:16)
[2019-12-17] MEDS ORDERED: GABAPENTIN100 M2 PO (21:21)
[2019-12-17] MEDS ORDERED: Ipratropium Brom3 ML INH (21:22)
[2019-12-17] MEDS ORDERED: MIRALAX POWDER17 G1 PO (21:27)
[2019-12-17] MEDS ORDERED: TRAMADOL HCL50 MG PO (21:31)
[2019-12-17] MEDS ORDERED: MILLIPRED5 MG PO (21:32)
[2019-12-17] MEDS ORDERED: NOVOLOG10 ML SC (21:46)
[2019-12-17 21:58] LABS: INTERNATIONAL NORM RATIO 2.7 (2.0-3.5)
--- NOTE | 2019-12-17 23:30 | NUR ---
ASSUMED CARE OF PATIENT. PATIENT ON 15L 100% NONREBREATHER. PATIENT DYSPNIC AT REST. DR. NINO IN ROOM. PATIENT CAN ONLY GET ONE WORD AT A TIME OUT SHE IS SHORT OF BREATH. PATIENT STATES SHE'S IN NO DISCOMFORT JUST HAVING A HARD TIME BREATHING. RIVERA DRAINING YELLOW URINE. CALL LIGHT WITHN REACH, WILL MONITOR
[2019-12-18] VITALS: BP 156/62
--- NOTE | 2019-12-18 01:15 | NUR ---
SPOKE WITH DR. NINO AT THIS TIME. TOLD HIM RESPIRATORY DECREASED PATIENTS OXYGEN TO 6L NASAL CANNULA AND PATIENTS MAINITAING 95% AND UP ON THAT, BUT WAS REQUESTING IF PATIENT COULD HAVE MORPHINE TO SLOW DOWN HER BREATHING AND MOANING. DR. NINO STATED HE WOULD PUT IT IN
--- NOTE | 2019-12-18 01:43 | NUR ---
ONE TIME DOSE OF MORPHINE GIVEN FOR PATIENTS INCREASED RESPIRATIONS AND MOANING. CALL LIGHT WITHIN REACH, WILL MONITOR
--- NOTE | 2019-12-18 02:10 | NUR ---
IV started right arm with #24 protective cath after 0 attempts. Site prepped with Chloroprep. Sterile dressing applied. Patient tolerated procedure well. LUBNA CAICEDO
--- NOTE | 2019-12-18 02:15 | NUR ---
Hep Lock discontinued RH. Site symptomatic PAINFUL. Pressure applied. Sterile dressing applied. LUBNA CAICEDO
--- NOTE | 2019-12-18 02:34 | NUR ---
PATIENT STILL MILDLY DYSPNIC, BUT STATES THE MORPHINE MADE HER FEEL BETTER. CALL LIGHT WITHIN REACH, WILL MONITOR
--- NOTE | 2019-12-18 04:00 | NUR ---
PATIENT APPEARS TO BE SLEEPING, STILL IN MILD DISTRESS. BUT MUCH CALMER AND NO LONGER MOANING. CALL LIGHT WITHIN REACH, WILL MONITOR
[2019-12-18 05:15] LABS: BILIRUBIN NEGATIVE (NEGATIVE); BLOOD 3+ (NEGATIVE); CLARITY CLEAR (CLEAR); COLOR YELLOW (YELLOW); GLUCOSE NEGATIVE (NEGATIVE); KETONE NEGATIVE (NEGATIVE); LEUKO ESTERASE TRACE (NEGATIVE); NITRITE NEGATIVE (NEGATIVE); SPECIFIC GRAVITY 1.025 (1.005-1.030); UROBILINOGEN 0.2 E.U./dl (0.2-1.0)
[2019-12-18 05:30] LABS: RBC 41-50 rbc/hpf (0-2)
[2019-12-18 05:31] LABS: BACTERIA TRACE
--- NOTE | 2019-12-18 06:58 | NUR ---
DR. LEMON NOTIFIED OF CONSULT
--- NOTE | 2019-12-18 07:01 | NUR ---
ANSWERING SERVICE FOR DR. HENDRIX NOTIFIED OF CONSULT AT THIS TIME
--- NOTE | 2019-12-18 07:04 | NUR ---
DR. REA NOTIFIED OF CONSULT
--- NOTE | 2019-12-18 07:43 | NUR ---
24 HR chart check completed.
[2019-12-18 08:00] VITALS: BP 155/51
--- NOTE | 2019-12-18 08:57 | NUR ---
PT IN CHRONIC RESPIRATORY DISTRESS. DRS IN TO SEE. DR SANTIAGO AWARE OF INABILITY TO OBTAIN AM LABS AT THIS POINT.
--- NOTE | 2019-12-18 09:43 | NUR ---
Updates faxed to [facility] on this date. Patient is LTC with [facility] and can return once medically stable.
[2019-12-18 12:00] VITALS: BP 154/62
--- NOTE | 2019-12-18 12:39 | NUR ---
PT IS USP CARE AT [facility] AND CAN RETURN WHEN MEDICALLY STABLE. WILL CONTINUE TO FOLLOW.
--- NOTE | 2019-12-18 13:18 | NUR ---
PHYSICAL THERAPY Abigail received chart reviewed, pt just admitted 12/16 and pt currently with multiple consults to be seen by pulmonary today. Pt on 6L 02 with mild distress had been receiving morphine due to increase repiratory rate/distress. Will follow once pulmonary has seen pt to further address respiratory status and will follow as appropriate. Janae Boogie PT
--- NOTE | 2019-12-18 14:56 | NUR ---
medicated with iv morphine as ordered for resp distress.
--- NOTE | 2019-12-18 15:29 | NUR ---
[facility] NOTIFIED OF P[facility]IVE CARE CONSULT. SHELBY HARVEY, SHOULD BE IN TO SEE PT TODAY. FACE SHEET, ORDER AND H&P TO BE FAXED.
--- NOTE | 2019-12-18 15:53 | NUR ---
REFERRAL FOR PALLIATIVE CARE SENT TO [facility].
[2019-12-18 16:00] VITALS: BP 176/62
[2019-12-18 16:12] LABS: ABG BASE EXCESS 2.9 mmol/L (-2.0-2.0); ARTERIAL BLOOD GAS PH 7.402 (7.35-7.45)
--- NOTE | 2019-12-18 17:13 | NUR ---
DR LEMON NOTIFIED OF [facility], NEW ORDER RECEIVED.
--- NOTE | 2019-12-18 17:21 | NUR ---
CANDICE TELLO NP INTO SEE PT FOR PALLIATIVE CONSULT.
--- NOTE | 2019-12-18 17:48 | NUR ---
MEDICATED WITH IV MORPHINE ORDERED FOR CONTINUED AND WORSENING RESP DISTRESS.
--- NOTE | 2019-12-18 18:38 | NUR ---
18:10 PT PLACED ON BIPAP. MILD RESP INSUFFICIENCY. TOLERATING WELL. PT STATES HER BREATHING FEELS BETTER ON THE BIPAP. BBSs EQUAL AND CLEAR. PT PLACED ON 12/6 AND 40%. SPO2 95% HR 70. RR 17. SYSTEM CHECKED AND FX'ING
--- NOTE | 2019-12-18 19:45 | NUR ---
PATIENT RESTING IN BED. VERY COMFORTABLE ON BIPAP, SLEEPING. NO DISTRESS NOTED. LUNGS WITH OFF AND ON WHEEZING AND RONCHI NOTED T/O. PATIENT PLEASANT AND COOPERATIVE WHEN AWAKE. SHOOK HER HEAD YES WHEN ASKED IF SHE FELT BETTER ON THE BIPAP.
[2019-12-18 20:00] VITALS: BP 148/66
[2019-12-19] VITALS: BP 156/60
--- NOTE | 2019-12-19 00:51 | NUR ---
PATIENT CONTINUES TO REST PEACEFULLY ON BIPAP. NO DISTRESS AT THIS TIME. VITALS WITHIN NORMAL LIMITS. RIVERA PATENT FOR YELLOW URINE. CALL LIGHT WITHIN REACH, WILL MONITOR
--- NOTE | 2019-12-19 01:13 | NUR ---
24 HR chart check completed.
--- NOTE | 2019-12-19 03:52 | NUR ---
PATIENT CONTINUES TO SLEEP ON BIPAP. CALL LIGHT WITHIN REACH, WILL MONITOR
--- NOTE | 2019-12-19 05:20 | NUR ---
ATTEMPTED TO TAKE PATIENT ON BIPAP AT THIS TIME. RESPIRATORY PRESENT. PATIENT PLACED ON 6L AND PULSE OX WAS MONITORED. PATIENT MAIINTAINED 99%, PATIENT WAS SLOWLY DROPPED TO 4L AND MAINTAINED MID 90'S. NOT LONG AFTER REMOVAL OF BIPAP PATIENT BEGAN USING ACCESSORY MUSCLES TO BREATH AND MOANING. PATIENT ALSO STATED THAT SHE WAS IN PAIN. WHEN ASKED IF THE PATIENT WOULD LIKE TO GO BACK ON THE BIPAP SHE STATED SHE WOULD. ATTEMPTED TO ALSO GIVE PATIENT MORPHINE FOR COMFORT AND IF ACCESS WAS LOST. PATIENT PLACED BACK ON BIPAP AND DOING MUCH BETTER.
--- NOTE | 2019-12-19 06:15 | NUR ---
IV started right BREAST with #24 protective cath after 1 attempts. Site prepped with Chloroprep. Sterile dressing applied. Patient tolerated procedure well. LUBNA CAICEDO
--- NOTE | 2019-12-19 07:01 | NUR ---
PATIENT RESTING QUIETLY ON BIPAP. MORPHINE APPEARS EFFECTIVE
[2019-12-19 07:14] LABS: BASO % 0.2 % (0.0-1.0); EOS # 0.1 10*3/uL (0.0-0.4); EOS % 1.4 % (1.0-4.0); HEMATOCRIT 32.3 % (37.0-47.0); LYMPH # 1.3 10*3/uL (1.3-4.4); LYMPH % 13.5 % (27.0-41.0); MEAN CORPUSCULAR HGB 30.6 pg (27.0-31.0); MEAN CORPUSCULAR HGB CONC 31.6 g/dl (33.0-37.0); MEAN PLATELET VOLUME 9.6 fl (9.6-12.3); MONO # 0.8 10*3/uL (0.1-1.0); MONO % 8.9 % (3.0-9.0); NEUT % 75.6 % (47.0-73.0); PLATELET COUNT AUTOMATED 202 10*3/uL (130-400); RED BLOOD COUNT 3.33 10*6/uL (4.10-5.10); RED CELL DISTRI WIDTH 12.2 % (0-14.5); WHITE BLOOD COUNT 9.3 10*3/uL (4.8-10.8)
[2019-12-19 07:21] LABS: ACT PARTIAL THROMBO TIME 43.6 SECONDS (20.0-32.1); INTERNATIONAL NORM RATIO 2.9 (2.0-3.5)
[2019-12-19 07:50] LABS: CREATININE 1.49 mg/dL (0.55-1.02); POTASSIUM 3.7 mmol/L (3.5-5.1)
[2019-12-19 07:58] LABS: VITAMIN D, 25-HYDROXY 67.2 ng/mL (30-100)
[2019-12-19 08:00] VITALS: BP 156/50
--- NOTE | 2019-12-19 08:00 | NUR ---
Patient resting quietly with no c/o discomfort. Respirations easy and regular. Vital signs stable. No overt distress. DON MORRELL
--- NOTE | 2019-12-19 09:00 | NUR ---
Occupational therapy orders received and chart reviewed. Patient is on BiPap and resting comfortably. Per nursing, patient's family is discussing palliative care versus hospice this date. Will defer OT evaluation at this time until futher MD clarification. Thank you. Syeda Pacheco, OTR/L
--- NOTE | 2019-12-19 09:18 | NUR ---
PHYSICAL THERAPY Spoke with nurse, pt currently on BiPAP and resting comfortably, pt's family to come and discuss pallative vs hospice care. Defer therapy at this time due to respiratory status and will follow pending family/MD discussion regarding medical status. Janae Boogie PT
--- NOTE | 2019-12-19 10:00 | NUR ---
FAMILY IN TO VISIT.
[2019-12-19 12:00] VITALS: BP 126/50
--- NOTE | 2019-12-19 12:32 | NUR ---
PT IS [facility] CARE AT [facility] AND WILL RETURN WHEN MEDICALLY STABLE.
--- NOTE | 2019-12-19 13:11 | NUR ---
Patient resting quietly with no c/o discomfort. Respirations easy and regular. Vital signs stable. No overt distress. DON MORRELL
[2019-12-19 16:00] VITALS: BP 100/61
--- NOTE | 2019-12-19 16:00 | NUR ---
Patient resting quietly with no c/o discomfort. Respirations easy and regular. Vital signs stable. No overt distress. DON MORRELL
[2019-12-19 20:00] VITALS: BP 151/59
--- NOTE | 2019-12-19 22:49 | NUR ---
PLACED PATIENT ON BIPAP FOR HS
[2019-12-20] VITALS: BP 138/59
--- NOTE | 2019-12-20 01:01 | NUR ---
24 HR chart check completed.
--- NOTE | 2019-12-20 02:10 | NUR ---
SLEEPING BIPAP IN USE. NO ACUTE DISTRESS NOTED.
--- NOTE | 2019-12-20 03:40 | NUR ---
IV in right chest pulled out catheter intact. sterile dressing applied. IV started left forearm with #22 angiocath after 1 attempts. The IV site was prepped with Chloraprep. Heparin lock attached. Sterile dressing applied. Patient tolerated precedure well. Procedure performed according to [facility] policy & procedure. BRYANT YAP
--- NOTE | 2019-12-20 06:40 | NUR ---
BIPAP OFF AND PATIENT PLACE BACK ON HER O2 4L NC. PATIENT TOLERATED BIPAP ALL NIGHT. PATIENT ALERT AND ATE 1 CONTAINEER OF APPLESAUCE.
[2019-12-20 06:41] LABS: INTERNATIONAL NORM RATIO 3.3 (2.0-3.5)
[2019-12-20 08:00] VITALS: BP 153/73
--- NOTE | 2019-12-20 10:00 | NUR ---
Physical Therapy evaluation completed on fifth floor with full evaluation to follow. Recommend physical therapy per plan of care and SNF/rehab upon discharge/return to nursing facility. Thank you for this referral. Janae Boogie PT
--- NOTE | 2019-12-20 10:15 | NUR ---
Occupational Therapy evaluation completed on four with full evaluation to follow. Recommend occupational therapy per plan of care and return to LTC with follow up therapy upon discharge. Thank you for this referral. Syeda Pacheco OTR/L
--- NOTE | 2019-12-20 11:37 | NUR ---
Clinical updates faxed to [facility] on this date. Patient will need a negative rapid covid before she can return.
[2019-12-20 12:00] VITALS: BP 150/57
--- NOTE | 2019-12-20 13:06 | NUR ---
PT IS NURSING HOME CARE AT [facility] AND WILL RETURN WHEN MEDICALLY STABLE. WILL CONTINUE TO FOLLOW.
[2019-12-20 16:00] VITALS: BP 136/74
--- NOTE | 2019-12-20 19:30 | NUR ---
PATIENT SITTING UP IN CHAIR. VOICED NO COMPLAINTS, NO OVERT DISTRESS NOTED. RESP ARE EASY AND REGULAR, ON 4L NC. CHAIR ALARM IN PLACE. CALL LIGHT WITHIN REACH
[2019-12-20 20:00] VITALS: BP 149/62
--- NOTE | 2019-12-20 23:43 | NUR ---
[place] EFFECTIVE
[2019-12-21] VITALS: BP 168/67
--- NOTE | 2019-12-21 01:00 | NUR ---
PATIENT RESTING QUIETLY, EYES CLSOED. NO DISTRESS NOTED. BIPAP MAINTAINED. CALL LIGTH WITHIN REACH
[2019-12-21 06:57] LABS: INTERNATIONAL NORM RATIO 2.8 (2.0-3.5)
[2019-12-21 08:00] VITALS: BP 153/74
[2019-12-21 08:20] LABS: BASO % 0.4 % (0.0-1.0); EOS # 0.2 10*3/uL (0.0-0.4); EOS % 2.7 % (1.0-4.0); HEMATOCRIT 36.9 % (37.0-47.0); LYMPH # 1.4 10*3/uL (1.3-4.4); LYMPH % 18.3 % (27.0-41.0); MEAN CELL VOLUME 94.9 fl (81.0-99.0); MEAN CORPUSCULAR HGB 30.6 pg (27.0-31.0); MEAN CORPUSCULAR HGB CONC 32.2 g/dl (33.0-37.0); MEAN PLATELET VOLUME 10.6 fl (9.6-12.3); MONO # 0.7 10*3/uL (0.1-1.0); NEUT # 5.3 10*3/uL (2.3-7.9); NEUT % 69.3 % (47.0-73.0); PLATELET COUNT AUTOMATED 221 10*3/uL (130-400); RED BLOOD COUNT 3.89 10*6/uL (4.10-5.10); RED CELL DISTRI WIDTH 11.8 % (0-14.5); WHITE BLOOD COUNT 7.7 10*3/uL (4.8-10.8)
[2019-12-21 08:59] LABS: ALBUMIN 3.6 gm/dl (3.1-4.5); CREATININE 1.27 mg/dL (0.55-1.02); POTASSIUM 3.3 mmol/L (3.5-5.1); TOTAL PROTEIN 7.6 gm/dL (6.4-8.2)
[2019-12-21 12:00] VITALS: BP 133/68
--- NOTE | 2019-12-21 12:30 | NUR ---
DR HENDRIX ROUNDED AND SEEN PT. PT OK FOR D/C TOMORROW TO [place] PER [facility] HENDRIX.
--- NOTE | 2019-12-21 13:32 | NUR ---
DR LEMON ROUNDED AND SEEN PT. OK FOR D/C TO [facility] TOMORROW PER DR LEMON.
[2019-12-21 16:00] VITALS: BP 137/59
--- NOTE | 2019-12-21 17:24 | NUR ---
PT RESTING IN BED WITH EYES CLOSED. RESPS EASY ON 4LNC.NO DISTRESS NOTED. WILL CONTINUE TO MONITOR. CALL LIGHT IN REACH.
--- NOTE | 2019-12-21 19:30 | NUR ---
PATIENT VOICED NO COMPLAINTS. NO DISTRESS NOTED. SITTING UP IN BED WATCHING TV. RESP ARE ERND ON 4L NC. CALL LIGHT WITHIN REACH
[2019-12-21 20:00] VITALS: BP 146/64
--- NOTE | 2019-12-21 22:13 | NUR ---
PLACED PATIENT ON BIPAP FOR HS
[2019-12-22] VITALS: BP 157/74
--- NOTE | 2019-12-22 00:14 | NUR ---
PATIENT HAD VERY LARGE BOWEL MOVEMENT AT THIS TIME. UMANG-CARE PROVIDED.
[2019-12-22 06:45] LABS: BASO % 0.5 % (0.0-1.0); EOS # 0.4 10*3/uL (0.0-0.4); EOS % 5.2 % (1.0-4.0); HEMATOCRIT 39.7 % (37.0-47.0); LYMPH # 1.4 10*3/uL (1.3-4.4); LYMPH % 16.4 % (27.0-41.0); MEAN CORPUSCULAR HGB 30.1 pg (27.0-31.0); MEAN CORPUSCULAR HGB CONC 31.7 g/dl (33.0-37.0); MEAN PLATELET VOLUME 9.2 fl (9.6-12.3); MONO # 0.9 10*3/uL (0.1-1.0); MONO % 10.6 % (3.0-9.0); NEUT # 5.7 10*3/uL (2.3-7.9); NEUT % 66.9 % (47.0-73.0); RED BLOOD COUNT 4.18 10*6/uL (4.10-5.10); RED CELL DISTRI WIDTH 11.8 % (0-14.5); WHITE BLOOD COUNT 8.5 10*3/uL (4.8-10.8)
[2019-12-22 06:46] LABS: PLATELET COUNT AUTOMATED 305 10*3/uL (130-400)
[2019-12-22 06:51] LABS: ALBUMIN 3.5 gm/dl (3.1-4.5); CREATININE 1.4 mg/dL (0.55-1.02); POTASSIUM 3.4 mmol/L (3.5-5.1); TOTAL PROTEIN 8.1 gm/dL (6.4-8.2)
[2019-12-22 08:00] VITALS: BP 173/69
--- NOTE | 2019-12-22 09:37 | NUR ---
08:20 PT TAKEN OFF OF BIPAP AT THIS TIME. PT HAD BEEN ON BIPAP T/O THE NIGHT. PT PLACED ON 4 L NC. RESPS REGULAR AND UNLABORED. TOLERATED BIPAP WELL T/O THE NIGHT. SPO2 100% ON 4 L. BBSs CLEAR.
[2019-12-22] MEDS ORDERED: KLOR-CON M2020 ME1 PO (10:09)
[2019-12-22] MEDS ORDERED: COUMADIN2 M1 PO (10:12)
[2019-12-22] MEDS ORDERED: Humalog SQ (10:12)
[2019-12-22] MEDS ORDERED: Lantus SC (10:12)
--- NOTE | 2019-12-22 10:38 | NUR ---
PT CALLED OUT TO C/O NAUSEA. PT DIAPHORETIC. DRY HEAVING. DENIES CP/PRESSURE. PT IS SOB. PLACED ON 2LNC.SPO2 89%. VITALS OBTAINED. NOTIFIED DR OLIVAREZ, ORDERS RECIEVED.
[2019-12-22 12:00] VITALS: BP 136/57
--- NOTE | 2019-12-22 12:14 | NUR ---
RIVERA D/C PER TERRELL WARREN'S ORDER. WILL CONTINUE TO MONITOR FOR URINE OUTPUT. BRIEF IN PLACE.ONCE PT HAS HAD URINE OUTPUT PT CAN BE DISCHARGED PER TERRELL WARREN'S REQUEST.
--- NOTE | 2019-12-22 15:13 | NUR ---
Discharge instructions reviewed with patient/family. Patient receptive and verbalizes understanding. Follow-up care arranged. Written instructions given to patient/family. IZABELA RODRIGUEZ
--- NOTE | 2019-12-22 15:23 | NUR ---
REPORT GIVEN TO LEEANNA AT [facility].
== END 2019-12-22 15:13 | disposition other institution (70) | DRG 291 ==
LOC: ED 15:21 → EDHOLD 19:28 → 5E 19:28
PROVIDERS: Emergency Medicine; Internal Medicine; Internal Medicine Critical Care Medicine; Registered Nurse; Student in an Organized Health Care Education/Training Program; ADMIT Internal Medicine
PROC: 5A09357 Assistance with Respiratory Ventilation, Less than 24 Consecutive Hours, Continuous Positive Airway Pressure (ICD-10-PCS; principal; 2019-12-18)
PROC: 5A09357 Assistance with Respiratory Ventilation, Less than 24 Consecutive Hours, Continuous Positive Airway Pressure (ICD-10-PCS; 2019-12-20)
PROC: 5A09357 Assistance with Respiratory Ventilation, Less than 24 Consecutive Hours, Continuous Positive Airway Pressure (ICD-10-PCS; 2019-12-21)
PROC: 5A09357 Assistance with Respiratory Ventilation, Less than 24 Consecutive Hours, Continuous Positive Airway Pressure (ICD-10-PCS; 2019-12-22)
DX: I13.0 Hypertensive heart and chronic kidney disease with heart failure and stage 1 through stage 4 chronic kidney disease, or unspecified chronic kidney disease (principal); J96.21 Acute and chronic respiratory failure with hypoxia; N17.0 Acute kidney failure with tubular necrosis; I50.33 Acute on chronic diastolic (congestive) heart failure; D68.59 Other primary thrombophilia; R65.10 Systemic inflammatory response syndrome (SIRS) of non-infectious origin without acute organ dysfunction; I48.21 Permanent atrial fibrillation; I69.359 Hemiplegia and hemiparesis following cerebral infarction affecting unspecified side; E87.8 Other disorders of electrolyte and fluid balance, not elsewhere classified; D53.9 Nutritional anemia, unspecified; J44.9 Chronic obstructive pulmonary disease, unspecified; E03.9 Hypothyroidism, unspecified; R79.89 Other specified abnormal findings of blood chemistry; I27.20 Pulmonary hypertension, unspecified; E11.65 Type 2 diabetes mellitus with hyperglycemia; K74.60 Unspecified cirrhosis of liver; I48.0 Paroxysmal atrial fibrillation; N18.3 Chronic kidney disease, stage 3 (moderate); E11.22 Type 2 diabetes mellitus with diabetic chronic kidney disease; E66.9 Obesity, unspecified; Z87.891 Personal history of nicotine dependence; Z95.810 Presence of automatic (implantable) cardiac defibrillator; Z88.0 Allergy status to penicillin; Z91.040 Latex allergy status; Z79.899 Other long term (current) drug therapy; Z79.01 Long term (current) use of anticoagulants; Z79.4 Long term (current) use of insulin; Z68.26 Body mass index [BMI] 26.0-26.9, adult